=== PATIENT | male | born 1970 | race Caucasian/White ===

== ENCOUNTER 2016-12-12 16:01 | Inpatient (IN) | payer OTHER ==
[2016-12-12] VITALS (10 sets, daily range): BP systolic 109–137; BP diastolic 59–70; PULSE 84–99; RESP 14–20; Ht 175.3 cm; Wt 89.0 kg
[~2016-12-12] VITALS: Ht 175.3 cm; Wt 89.0 kg
[~2016-12-12 16:01] MED LIST: ROCURONIUM 50 MG INJ ONE
[2016-12-12 17:07] LABS: BASOPHILS % 0.4 % (0.0-2.0); EOSINOPHILS # 0.1 10^3/ul (0.0-0.5); EOSINOPHILS % 1.2 % (0.0-7.0); HEMATOCRIT 41.7 % (42.0-52.0); HEMOGLOBIN 14.4 g/dl (14.0-18.0); LYMPHOCYTES # 2.2 10^3/ul (0.8-2.9); LYMPHOCYTES % 19.9 % (15.0-51.0); MEAN CORPUSCULAR HEMOGLOBIN 33.9 pg (29.0-33.0); MEAN CORPUSCULAR HGB CONC 34.5 g/dl (32.0-37.0); MEAN CORPUSCULAR VOLUME 98.1 fl (82.0-101.0); MEAN PLATELET VOLUME 9.7 fl (7.4-10.4); MONOCYTE # 1.3 10^3/ul (0.3-0.9); MONOCYTES % 11.5 % (0.0-11.0); NEUTROPHIL # 7.4 10^3/ul (1.6-7.5); NEUTROPHILS % 66.7 % (39.0-77.0); PLATELET COUNT 192 10^3/UL (140-415); RED BLOOD COUNT 4.25 10^6/ul (4.70-6.10); RED CELL DISTRIBUTION WIDTH 12.8 % (11.5-14.5); WHITE BLOOD COUNT 11.1 10^3/ul (4.8-10.8)
[2016-12-12 17:13] LABS: ADD UMIC NO; UR ASCORBIC ACID 40 mg/dL (NEGATIVE); UR BILIRUBIN (Dip) NEGATIVE (NEGATIVE); UR BLOOD (Dip) NEGATIVE (NEGATIVE); UR CLARITY CLEAR (CLEAR); UR COLOR YELLOW (YELLOW); UR GLUCOSE (Dip) NEGATIVE (NEGATIVE); UR KETONES (Dip) NEGATIVE (NEGATIVE); UR LEUKOCYTE ESTERASE (Dip) NEGATIVE Leu/ul (NEGATIVE); UR NITRITE (Dip) NEGATIVE (NEGATIVE); UR SPECIFIC GRAVITY (Dip) 1.023 (1.003-1.030); UR TOTAL PROTEIN (Dip) NEGATIVE (NEGATIVE); UR UROBILINOGEN (Dip) NEGATIVE (NEGATIVE)
[2016-12-12 17:29] LABS: ALBUMIN 4.4 g/dl (3.3-4.9); ALBUMIN/GLOBULIN RATIO 1.41; BILIRUBIN,INDIRECT 0.8 mg/dl (0-1.1); BILIRUBIN,TOTAL 0.8 mg/dl (0.2-1.3); CREATININE 0.86 mg/dl (0.61-1.24); TOTAL PROTEIN 7.5 g/dl (6.1-8.1)
--- NOTE | 2016-12-12 17:41 | RADRPT ---
PROCEDURE: CT abdomen and pelvis without contrast. CLINICAL INDICATION: Abdominal Pain TECHNIQUE: CT scan of the abdomen and pelvis without contrast was performed and is reconstructed a t 2.5 mm contiguous axial intervals from the dome of the diaphragm to the inferior pubic rami.. The patient was scanned without intravenous contrast. Sagittal and coronal reformatted images were obt ained from the axial source images. The calculated radiation dose measures at 875 mGy centimeters. T he CTDI measures 60 mGy. COMPARISON: It FINDINGS: The lung bases are clear of any infiltrate or nodule. No effusion is seen. The liver is of normal size and contour. There is fatty infiltration. No mass or ductal dilatation is seen. No gallstones are visualized. No splenic, adrenal or pancreatic abnormalities present. Kidneys are of normal size and contour. No hydronephrosis, calculus or masses seen. Ureters are o f normal course and caliber with no stone. No bladder mass or stone is present. Prostate and semina l vesicles are normal. There is no aneurysm. No adenopathy is present. No bowel mass or obstruction is present. The appendix is located medial to the cecum. It is enla rged measuring 12 mm in diameter and there is infiltration of the surrounding periappendiceal fat. No abscess is present, however, there are a few tiny extraluminal gas bubbles. Findings are compati ble with early perforated appendicitis. ascites or pneumoperitoneum is visualized. The osseous structures are intact. IMPRESSION: Early perforated appendicitis. No abscess or generalized pneumoperitoneum. Fatty liver. .Lucio Gold MD, Date Time Electronically viewed and signed by .Lucio Gold MD, on 12/12/2016 17:41 .A/
[2016-12-12 18:29] LABS: INR 0.99; PROTIME 13.1 Sec (12.2-14.2)
[2016-12-12 18:30] LABS: PARTIAL THROMBOPLASTIN TIME 29.7 Sec (25.0-35.0)
[2016-12-12] MEDS ORDERED: CEFTRIAXONE 1 GM/50 ML (PMX) 50 ML IVPB ONE (18:30)
[2016-12-12] MEDS ORDERED: metroNIDAZOLE 500 MG/NS (PMX) 100 ML IVPB ONE (18:30)
[2016-12-12] MEDS ORDERED: SOD CHLORIDE 0.9% 1,000 ML IV ONE ×2 (18:30→19:00)
[2016-12-12] MEDS ORDERED: morphine 4 MG/ML VIAL IV STA (18:53)
--- NOTE | 2016-12-12 18:55 | ERA ---
ER Documentation Chief Complaint Date/Time DATE: 12/12/16 TIME: 18:50 Chief Complaint GENERALIZED ABD PAIN , LOW BACK PAIN X 4 DAYS HPI 46-year-old male presents to the ER with generalized abdominal pain worst in his mid abdomen and right lower quadrant as well as low back pain for the last 4 days. He is also had some nausea. States he is otherwise healthy and is does not usually happen to him. He did eat breakfast today at 7 in the morning and then he had T at 130. States that now he has nausea and feels like he cannot eat. ROS All systems reviewed and are negative except as per history of present illness. Medications Home Meds No Active Prescriptions or Reported Meds Allergies Allergies: Coded Allergies: No Known Allergy (Unverified , 12/12/16) PMhx/Soc Medical and Surgical Hx: pt denies Medical Hx, pt denies Surgical Hx History of Surgery: No Anesthesia Reaction: No Hx Neurological Disorder: No Hx Respiratory Disorders: No Hx Cardiac Disorders: No Hx Psychiatric Problems: No Hx Miscellaneous Medical Probl: No Hx Alcohol Use: Yes (WEEKLY) Hx Substance Use: No Hx Tobacco Use: Yes (3 CIGARETTE A WEEK) Smoking Status: Never smoker Physical Exam Vitals Vital Signs Date Time Temp Pulse Resp B/P Pulse Ox O2 Delivery O2 Flow Rate FiO2 12/12/16 16:05 99.2 88 18 146/93 98 Physical Exam Const: [] Mild distress Head: Atraumatic Eyes: Normal Conjunctiva ENT: Normal External Ears, Nose and Mouth. Neck: Full range of motion..~ No meningismus. Resp: Clear to auscultation bilaterally Cardio: Regular rate and rhythm, no murmurs Abd: Soft, mild diffuse abdominal tenderness with moderate right lower quadrant abdominal tenderness,, non distended. Normal bowel sounds Skin: No petechiae or rashes Back: No midline or flank tenderness Ext: No cyanosis, or edema Neur: Awake and alert oriented 3, no focal left Psych: Normal Mood and Affect Result Diagram: 12/12/16 1650 12/12/16 1650 Results 24 hrs Laboratory Tests Test 12/12/16 16:50 12/12/16 17:00 White Blood Count 11.110^3/ul Red Blood Count 4.2510^6/ul Hemoglobin 14.4g/dl Hematocrit 41.7% Mean Corpuscular Volume 98.1fl Mean Corpuscular Hemoglobin 33.9pg Mean Corpuscular Hemoglobin Concent 34.5g/dl Red Cell Distribution Width 12.8% Platelet Count 93206^3/UL Mean Platelet Volume 9.7fl Neutrophils % 66.7% Lymphocytes % 19.9% Monocytes % 11.5% Eosinophils % 1.2% Basophils % 0.4% Nucleated Red Blood Cells % 0.0/100WBC Neutrophils # 7.410^3/ul Lymphocytes # 2.210^3/ul Monocytes # 1.310^3/ul Eosinophils # 0.110^3/ul Basophils # 0.010^3/ul Nucleated Red Blood Cells # 0.010^3/ul Urine Color YELLOW Urine Clarity CLEAR Urine pH 5.0 Urine Specific [place] 1.023 Urine Ketones NEGATIVEmg/dL Urine Nitrite NEGATIVEmg/dL Urine Bilirubin NEGATIVEmg/dL Urine Urobilinogen NEGATIVEmg/dL Urine Leukocyte Esterase NEGATIVELeu/ul Urine Hemoglobin NEGATIVEmg/dL Urine Glucose NEGATIVEmg/dL Urine Total Protein NEGATIVEmg/dl Sodium Level 142mmol/L Potassium Level 4.0mmol/L Chloride Level 99mmol/L Carbon Dioxide Level 29mmol/L Anion Gap 18 Blood Urea Nitrogen 17mg/dl Creatinine 0.86mg/dl Glucose Level 101mg/dl Calcium Level 9.0mg/dl Total Bilirubin 0.8mg/dl Direct Bilirubin 0.00mg/dl Indirect Bilirubin 0.8mg/dl Aspartate Amino Transf (AST/SGOT) 19IU/L Alanine Aminotransferase (ALT/SGPT) 40IU/L Alkaline Phosphatase 66IU/L Total Protein 7.5g/dl Albumin 4.4g/dl Globulin 3.10g/dl Albumin/Globulin Ratio 1.41 Lipase 61U/L Prothrombin Time 13.1Sec Prothrombin Time Ratio 1.0 INR International Normalized Ratio 0.99 Activated Partial Thromboplast Time 29.7Sec Current Medications Medications (Trade) Dose Ordered Sig/Daniel Route PRN Reason Start Time Stop Time Status Last Admin Dose Admin Sodium Chloride 1,000 ml @ 1,000 mls/hr Q1H ONCE IV 12/12/16 18:30 12/12/16 19:29 12/12/16 18:28 Ceftriaxone Sodium 50 ml @ 100 mls/hr ONCE ONCE IVPB 12/12/16 18:30 12/12/16 18:59 7/22/17 18:36 Metronidazole (Flagyl 500 Mg (Pmx)) 100 ml @ 100 mls/hr ONCE ONCE IVPB 12/12/16 18:30 12/12/16 19:29 Procedures/MDM Acute appendicitis read as early perforation as well. Patient had a very subacute presentation. Did not seem to be in much distress, was given a liter of normal saline. Does have an elevated white blood cell count. I did speak with Dr. Olea, general surgeon on-call, who would like the patient sent to the OR immediately. He was also given Rocephin and Flagyl. I have ordered another liter of normal saline as well as coagulation studies. He will be admitted to the medical surgical floor CT abdomen pelvis interpretation: Appendicitis with early perforation, no obstruction, no fractures per Departure Diagnosis: Primary Impression: Appendicitis Condition: Serious AR GEIGER DO Dec 12, 2016 18:55
[2016-12-12] MEDS ORDERED: SOD CHLORIDE 0.9% 1,000 ML IV SCH (19:13)
[2016-12-12] MEDS ORDERED: MIDAZOLAM 1 MG/ML 2 ML INJ ONE (19:16)
[2016-12-12] MEDS ORDERED: DEXAMETHASONE 4 MG/ML 1 ML INJ ONE (19:16)
[2016-12-12] MEDS ORDERED: ONDANSETRON 4 MG INJ ONE (19:16)
[2016-12-12] MEDS ORDERED: NEOSTIGMINE 3 MG/3 ML SYRINGE ONE (19:16)
[2016-12-12] MEDS ORDERED: FENTAnyl 50 MCG/ML VIAL ONE (19:16)
[2016-12-12] MEDS ORDERED: PROPOFOL 20 ML ONE (19:16)
[2016-12-12] MEDS ORDERED: GLYCOPYRROLATE 0.4 MG INJ ONE (19:16)
[2016-12-12] MEDS ORDERED: CEFAZOLIN 1 GM INJ ONE (19:16)
[2016-12-12] MEDS ORDERED: ROCURONIUM 50 MG INJ ONE (19:16)
[2016-12-12] MEDS ORDERED: ALBUTEROL/IPRATROPIUM (NEB) 3 ML AMP HHN PRN (19:30)
[2016-12-12] MEDS ORDERED: hydrALAzine 20 MG INJ IV PRN (19:30)
[2016-12-12] MEDS ORDERED: LORAZEPAM 2 MG INJ IV PRN (19:30)
[2016-12-12] MEDS ORDERED: LABETALOL HCL 20MG INJ IV PRN (19:30)
[2016-12-12] MEDS ORDERED: ONDANSETRON 4 MG INJ IV PRN ×3 (19:30)
[2016-12-12] MEDS ORDERED: TRIMETHOBENZAMIDE 100 MG/ML VIAL IM PRN (19:30)
[2016-12-12] MEDS ORDERED: DIPHENHYDRAMINE 50 MG INJ IV PRN (19:30)
[2016-12-12] MEDS ORDERED: NACL 0.9% 3 ML SYG IV SCH (19:30)
[2016-12-12] MEDS ORDERED: morphine 2 MG INJ IV PRN (19:30)
[2016-12-12] MEDS ORDERED: EPHEDrine SULFATE 50 MG/5 ML SYG IV PRN (19:30)
[2016-12-12] MEDS ORDERED: MIDAZOLAM 1 MG/ML 2 ML INJ IV PRN (19:30)
[2016-12-12] MEDS ORDERED: ACETAMINOPHEN 325 MG TAB PO PRN ×2 (19:30)
[2016-12-12] MEDS ORDERED: MAGNESIUM HYDROXIDE 30ML CUP PO PRN (19:30)
[2016-12-12] MEDS ORDERED: DOCUSATE SODIUM 100 MG CAP PO PRN ×2 (19:30→22:00)
[2016-12-12] MEDS ORDERED: NA PHOSPHATE/BIPHOS 133 ML ENEMA PR PRN ×2 (19:30→22:00)
[2016-12-12] MEDS ORDERED: OXYCODONE/ACETAMINOPHEN (5/325) TAB PO PRN ×2 (19:30)
[2016-12-12] MEDS ORDERED: IPRATROPIUM (NEB) 0.5 MG/2.5 ML AMP HHN PRN (19:30)
[2016-12-12] MEDS ORDERED: HYDROCODONE/APAP (5/325) TAB PO PRN ×3 (19:30→22:00)
[2016-12-12] MEDS ORDERED: MEPERIDINE 25 MG INJ IV PRN (19:30)
[2016-12-12] MEDS ORDERED: HYDROmorphONE (0.2 MG/ML) 10ML SYG IV PRN ×3 (19:30)
[2016-12-12] MEDS ORDERED: FENTAnyl 50 MCG/ML VIAL IV PRN ×3 (19:30)
[2016-12-12] MEDS ORDERED: ALBUTEROL 0.083% (NEB) 2.5 MG/3 ML AMP HHN PRN (19:30)
[2016-12-12] MEDS ORDERED: NITROGLYCERIN (SL) 0.4 MG TAB SL PRN (19:30)
--- NOTE | 2016-12-12 19:51 | CONS ---
Date/Time of Note Date/Time of Note DATE: 12/12/16 TIME: 19:51 Assessment/Plan Assessment/Plan Additional Assessment/Plan [facility] INPATIENT CONSULTATION NOTE DATE OF SERVICE: 12/12/2016 PLACE OF SERVICE: [facility], preoperative area ASSESSMENT AND PLAN: A very-pleasant otherwise healthy 46-year-old gentleman admitted through the [facility] emergency department with signs and symptoms consistent with acute appendicitis, associated with mildly elevated white blood cell count and a CT scan showing acute appendicitis. I recommended laparoscopic, possible open appendectomy and after careful review of the rationale behind the recommendation, review of the operation detail, risks, benefits, and alternatives, the patient and his family appeared to understand and agreed with the proposed operative plan. With above assessment, I've recommended the followin. To the operating room for above Thank you very much for having me involved in the care of this very pleasant patient and wonderful family. If you have any questions, please feel free to contact me at [phone]. Nature of presenting problem: Moderate severity Please note that, given the limited number of diagnoses or management options, the moderate amount and/or complexity of data needed to be reviewed, and moderate risk of complications and/or morbidity or mortality, this qualifies as moderate complexity type of decision-making. Disclaimer: Inadvertent spelling and grammatical errors are likely due to EHR/ dictation software use and do not reflect on the quality of delivered patient care. Also, please note that the electronic time recorded on this node does not necessarily reflect the actual time of the visit. Updated clinical summary: A very-pleasant otherwise healthy 46-year-old gentleman admitted through the [facility] emergency department with signs and symptoms consistent with acute appendicitis, associated with mildly elevated white blood cell count and a CT scan showing acute appendicitis. Comorbidities: 1. BMI 29 CONSULTATION REQUESTED BY: Cristino Latif MD HISTORY OF PRESENT ILLNESS: The patient is a very pleasant 46-year-old gentleman admitted through the [facility] emergency department with signs and symptoms consistent with acute appendicitis, associated with mildly elevated white blood cell count and a CT scan showing acute appendicitis. Pain started four days ago. Periumbilical with right lower quadrant location without radiation. No associated fevers or chills. Patient did have nausea but no vomiting. No blood in the stool or urine or in the emesis. Otherwise healthy. ALLERGIES: NO KNOWN DRUG ALLERGIES MEDICATIONS Documented in the electronic records and reviewed by me. Please see the electronic records for details, as well as details for inpatient medications which were also reviewed by me. SOCIAL HISTORY: The patient lives with family. + Tob (3 cigarettes a week);- ETOH;- IVDU FAMILY HISTORY: There are no significant medical, surgical or oncologic issues in the family as reported by the patient or reflected in the chart. REVIEW OF SYSTEMS: Other than mentioned above, there were no other pertinent positives or pertinent negatives in an otherwise complete 14 point review of systems. PHYSICAL EXAMINATION GENERAL: The patient appears to be a very pleasant gentleman of descent lying in bed, appearing stated age, and otherwise in no acute distress. BMI: 29 VITAL SIGNS: AVSS (please also see auto important data if available as well as the electronic records) HEENT: Normocephalic and atraumatic. Extraocular muscles and hearing are grossly intact bilaterally and symmetrically. Sclerae are nonicteric. Oral cavity is clear; oral mucosa appear to be pink and moist. Dentition: fair. NECK: Supple. There is no lymphadenopathy or JVD. There is no submental, submandibular or supraclavicular lymphadenopathy. CHEST: Rises symmetrically with each breath; patient is breathing comfortably. There are no audible wheezes, rales or rhonchi on the gross exam. HEART: Pulse is regular and palpable on the right wrist. Capillary refill is normal. Carotid pulses are palpable bilaterally and symmetrically in the neck. EXTREMITIES: Lower extremities contain no pitting edema around the ankles bilaterally and symmetrically. ABDOMEN: Abdomen is soft, mildly tender in right lower quadrant and nondistended. No evidence of ascites, organomegaly, caput medusae, engorged subcutaneous veins, or other abnormalities. There are no peritoneal signs or guarding. SKIN: Appears to be pink and feels warm to touch. NEUROLOGIC: Awake, alert, and follows commands appropriately. LABORATORY DATA: WBC 11.1, hemoglobin 14.4, platelets 192. Electrolytes are normal, CO2 29, creatinine 0.86, liver function and injury parameters normal. Albumin 4.4, lipase 61. INR 0.99. IMAGING: See electronic chart. Please note that I've personally reviewed all pertinent available images and I agree in general with their overall reported findings. CT scan abdomen and pelvis [facility] 12/12/2016 IMPRESSION: Early perforated appendicitis. No abscess or generalized pneumoperitoneum. Consultation Date/Type/Reason Admit Date/Time Social History Smoking Status: Never smoker Exam/Review of Systems Vital Signs Vitals Vital Signs Date Time Temp Pulse Resp B/P Pulse Ox O2 Delivery O2 Flow Rate FiO2 12/12/16 16:05 99.2 88 18 146/93 98 Results Result Diagram: 12/12/16 1650 12/12/16 1650 Results 24 hrs Laboratory Tests Test 12/12/16 16:50 12/12/16 17:00 White Blood Count 11.1 H Red Blood Count 4.25 L Hemoglobin 14.4 Hematocrit 41.7 L Mean Corpuscular Volume 98.1 Mean Corpuscular Hemoglobin 33.9 H Mean Corpuscular Hemoglobin Concent 34.5 Red Cell Distribution Width 12.8 Platelet Count 192 Mean Platelet Volume 9.7 Neutrophils % 66.7 Lymphocytes % 19.9 Monocytes % 11.5 H Eosinophils % 1.2 Basophils % 0.4 Nucleated Red Blood Cells % 0.0 Neutrophils # 7.4 Lymphocytes # 2.2 Monocytes # 1.3 H Eosinophils # 0.1 Basophils # 0.0 Nucleated Red Blood Cells # 0.0 Urine Color YELLOW Urine Clarity CLEAR Urine pH 5.0 Urine Specific [place] 1.023 Urine Ketones NEGATIVE Urine Nitrite NEGATIVE Urine Bilirubin NEGATIVE Urine Urobilinogen NEGATIVE Urine Leukocyte Esterase NEGATIVE Urine Hemoglobin NEGATIVE Urine Glucose NEGATIVE Urine Total Protein NEGATIVE Sodium Level 142 Potassium Level 4.0 Chloride Level 99 Carbon Dioxide Level 29 Anion Gap 18 H Blood Urea Nitrogen 17 Creatinine 0.86 Glucose Level 101 Calcium Level 9.0 Total Bilirubin 0.8 Direct Bilirubin 0.00 Indirect Bilirubin 0.8 Aspartate Amino Transf (AST/SGOT) 19 Alanine Aminotransferase (ALT/SGPT) 40 Alkaline Phosphatase 66 Total Protein 7.5 Albumin 4.4 Globulin 3.10 Albumin/Globulin Ratio 1.41 Lipase 61 Prothrombin Time 13.1 Prothrombin Time Ratio 1.0 INR International Normalized Ratio 0.99 Activated Partial Thromboplast Time 29.7 Medications Medications Current Medications Sodium Chloride 1,000 ml @ 1,000 mls/hr Q1H ONCE IV Last administered on t 18:28; Admin Dose 1,000 MLS/HR; Start 12/12/16 at 18:30; Stop 12/12/16 at 19:29 Ceftriaxone Sodium 50 ml @ 100 mls/hr ONCE ONCE IVPB Last administered on t 18:36; Admin Dose 100 MLS/HR; Start 12/12/16 at 18:30; Stop 12/12/16 at 18:59 Metronidazole (Flagyl 500 Mg (Pmx)) 100 ml @ 100 mls/hr ONCE ONCE IVPB ; Start 12/12/16 at 18:30; Stop 12/12/16 at 19:29 POPPY NAIK M.D. Dec 12, 2016 19:51
[2016-12-12] MEDS ORDERED: BUPIVACAINE 0.25%/EPI (SDV) 30 ML INJ ONE (20:24)
[2016-12-12] MEDS ORDERED: SUGAMMADEX SODIUM 200 MG/2 ML VIAL IV ONE (21:12)
[2016-12-12] MEDS ORDERED: KETOROLAC 30 MG INJ ONE (21:13)
--- NOTE | 2016-12-12 21:33 | OPR ---
Date/Time of Note Date/Time of Note DATE: 12/12/16 TIME: 21:32 Operative Report Procedure Description [facility] IN[facility]IENT [facility] PLACE OF SERVICE: [facility] DATE OF SURGERY: 12/12/2016 PREOPERATIVE DIAGNOSIS: 1. Acute appendicitis with possible perforation 2. BMI 29 POSTOPERATIVE DIAGNOSIS: 1. Acute appendicitis without obvious perforation 2. BMI 29 OPERATION: 1. Laparoscopic appendectomy 2. Lysis of adhesions SURGEON: Poppy Naik M.D. FACTORY EXPERT: None ANESTHESIA: General endotracheal tube anesthesia ANESTHESIOLOGIST: Alex Buitrago M.D. BRIEF SUMMARY: An otherwise uncomplicated laparoscopic appendectomy was performed with findings of non-perforated appendicitis. Updated clinical summary: A very-pleasant otherwise healthy 46-year-old gentleman admitted through the [facility] emergency department with signs and symptoms consistent with acute appendicitis, associated with mildly elevated white blood cell count and a CT scan showing acute appendicitis. Comorbidities: 1. BMI 29 BRIEF HISTORY: The patient is a very-pleasant otherwise healthy 46-year-old gentleman admitted through the [facility] emergency department with signs and symptoms consistent with acute appendicitis, associated with mildly elevated white blood cell count and a CT scan showing acute appendicitis. I met with the patient and family (his ) and counseled them regarding the possible options of treatment, and I strongly suggested a laparoscopic, possible open appendectomy. We reviewed the operation in detail as well as the risks, benefits, alternatives, and expected outcomes of this operation. After careful consideration of all the risks, benefits, and alternatives, the patient and family appeared to understand those risks and wished to proceed with surgery. For a detailed report of my consultation with patient and family, please refer to my separate consultation note. STATEMENT OF THE INFORMED CONSENT: The patient and family appeared to understand the risks of the operation to include, but not be limited to risk of postoperative pain and scar tissue, possible infection or bleeding requiring other interventions such as opening the wound, placement of drainage catheters, or other operative interventions; possible injury to surrounding to structures including bowel, bladder, bile duct, or blood vessels, or solid organs such as liver, kidney, or pancreas requiring other interventions or procedures; possible leakage of bowel from anastomotic sites or suture lines causing significant increase in morbidity and mortality and requiring multiple interventions including but not limited to, placement of drainage catheters, imaging studies, as well as operative interventions; possible other source of sepsis such as urinary tract infections or pneumonias, or other sources of potentially life threatening problems such as deep venous thrombus formation causing pulmonary embolism, myocardial arrhythmias and infarctions, and even . After careful consideration of all their options, the patient and family appeared to understand and wished to proceed with surgery. DESCRIPTION OF PROCEDURE: After obtaining informed consent, the patient was brought into the operating room and was placed in a normal supine position, where successful general endotracheal tube anesthesia was performed. Intravenous access was already in place and intravenous antimicrobials had been appropriately chosen and dosed prior to the operation. The patient's abdominal skin was prepped and draped from the nipple line down to the level of the upper thighs in the usual sterile fashion. We then called a surgical time-out where the patient's identification, date of , nature of the operation, allergies , presence of intravenous antimicrobials, presence of needed equipment, and any other concerns were reviewed and agreed upon by all members of the operating room team. We then started the operation by placing a 5 mm skin incision in the left lower quadrant and then introduced a 5 mm [employer] trocar into the peritoneal space, visualizing all the layers of the abdominal wall as we entered. Note that there was no indication of any injury to underlying structures with our entry into the peritoneal space. We insufflated the abdominal cavity to a maximum pressure of 15 mmHg and again inspected the area of insertion and ensured no obvious injury to underlying structures prior to inspecting the abdominal cavity and showing no obvious pus, bowel contents, or other abnormal features. We could not see the appendix very well. We, therefore, injected the future sites of our other trocars with 0.25% Marcaine with epinephrine and placed a 5 mm [employer] trocar into the midline suprapubic area, taking care not to injure the bladder. Note that the patient had not urinated prior to the operation, and bladder was somewhat full. We also placed a 12 mm trocar in the umbilical midline area, all under direct visualization. With our instruments in place, we had excellent visualization and access to the right lower quadrant. We then identified the appendix, which was inflamed but had a normal base coming out of the cecum. The appendix appeared to be densely adherent onto the right pelvic sidewall. I spent approximately 30 minutes doing lysis of adhesions to dissect around this area. I then went ahead and used judicious amount of cautery as well as mostly blunt dissection to circumferentially isolate the base of the appendix and then transected this using one firing of the white load of the Endo-MILANA stapler. We also repeated the firing on the mesentery of the appendix (2 loads) and completely disconnected the organ from the colon, delivered this out through the 12 mm trocar site inside of an EndoCatch bag without having to enlarge the fascial defect as well as without contaminating the wound. The specimen was sent to Pathology for further analysis. We then ensured adequate hemostasis and bile stasis, removed all our equipment including the pneumoperitoneum from the abdominal cavity prior to closing the infraumbilical fascia with 1 [id number] 0 Vicryl suture on a UR -6 needle, washing the wounds with copious amounts of normal saline, injecting the initial insertion point of the trocar with 0.25% Marcaine with epinephrine, and then closing the skin using interrupted 4-0 Monocryl sutures. Light dressing was then applied. At the end of the operation, both the sponge count and needle count were reportedly correct x2. The patient tolerated the procedure without any reported complications. ESTIMATED BLOOD LOSS: Less than 10 mL. BLOOD OR BLOOD PRODUCT TRANSFUSIONS: None to my knowledge. SPECIMENS: 1. Appendix COMPLICATIONS: None. DISPOSITION: Recovery area. Disclaimer: Inadvertent spelling and grammatical errors are likely due to EHR/ dictation software use and do not reflect on the quality of delivered patient care. POPPY NAIK M.D. Dec 12, 2016 21:33
[2016-12-12] MEDS ORDERED: HYDROmorphONE 1 MG/ML SYG IV PRN ×2 (22:00)
[2016-12-12] MEDS ORDERED: BISACODYL 10 MG SUPP PR PRN (22:00)
[2016-12-12] MEDS: D5W-0.45 NACL + KCL 20 MEQ 1,000 ML IV SCH (23:39)
[2016-12-12 23:56] LABS: INR 1.09; PARTIAL THROMBOPLASTIN TIME 32.2 Sec (25.0-35.0); PROTIME 14.1 Sec (12.2-14.2); PT RATIO 1.1
[2016-12-12] MEDS: HEPARIN 5,000 UNIT/0.5 ML VIAL SC SCH (23:58)
[2016-12-13] VITALS: BP 114/63; PULSE 88; RESP 17
[2016-12-13 04:00] VITALS: BP 115/66; PULSE 82; RESP 18
--- NOTE | 2016-12-13 05:24 | HP ---
Date/Time of Note Date/Time of Note DATE: 12/13/16 TIME: 05:18 Assessment/Plan VTE Prophylaxis VTE Prophylaxis Intervention: SCD's Lines/Catheters IV [facility] (from [facility] Peripheral IV Assessment/Plan Assessment/Plan 1. Acute appendicitis, status post laparoscopic appendectomy -Patient is doing really well. He is denying pain, and has been ambulating without any difficulty. No nausea or vomiting and has been tolerating water. -Patient will be discharged later on today if cleared by surgery. 2. Obesity with a BMI of 29: -Weight reduction has been advised. HPI/ROS Admit Date/Time Admit Date/Time Hx of Present Illness This is a 46-year-old male with no significant past medical history who presented to the emergency department complaining of abdominal pain. CT abdomen pelvis shows early perforated appendicitis. He is now status post laparoscopic appendectomy and he is doing well. During surgery, his appendix was noted to be not perforated. Currently he is denying pain, nausea or vomiting. He has been drinking water and is able to keep it down. He said he has been passing gas and ambulating without any difficulty. PMH/Family/Social Social History Alcohol Use: other (6 cans of beer weekly) Smoking Status: Current some day smoker Drug Use: none Exam/Review of Systems Vital Signs Vitals Vital Signs Date Time Temp Pulse Resp B/P Pulse Ox O2 Delivery O2 Flow Rate FiO2 12/12/16 23:00 Nasal Cannula 2.0 12/12/16 22:17 98.7 84 18 109/62 97 Intake and Output 12/12/16 12/12/16 12/13/16 15:00 23:00 07:00 Intake Total 2400 ml Output Total 25 ml Balance 2375 ml Exam Constitutional: alert, oriented, well developed Head: atraumatic, normocephalic Eyes: EOMI, PERRL Respiratory: clear to auscultation, normal air movement Cardiovascular: nl pulses, regular rate and rhythm Gastrointestinal: other (minimally tender at surgical sites), soft, surgical scars Extremities: normal pulses Labs Result Diagram: 12/12/16 1650 12/12/16 1650 Medications Medications Current Medications Ondansetron HCl (Zofran Inj) 4 mg Q6H PRN IV NAUSEA AND/OR VOMITING; Start at 19:30 Acetaminophen (Tylenol Tab) 650 mg Q6H PRN PO PAIN LEVEL 1-3 OR FEVER; Start at 19:30 Acetaminophen/ Hydrocodone Bitart ([place] (5/325)) 1 tab Q6H PRN PO MODERATE PAIN LEVEL 4-6; Start 12/12/16 at 19:30 Docusate Sodium (Colace) 100 mg Q12H PRN PO CONSTIPATION; Start 12/12/16 at 19: 30 Magnesium Hydroxide (Milk Of Mag) 30 ml DAILY PRN PO CONSTIPATION; Start at 19:30 Sodium Biphosphate/ Sodium Phosphate (Fleet Enema) 133 ml DAILY PRN [place] CONSTIPATION; Start 12/12/16 at 19:30 Pantoprazole (Protonix Iv) 40 mg DAILY@06 IV ; Start 12/13/16 at 06:00 Heparin Sodium (Porcine) (Heparin (5000 Units/0.5 ml)) 5,000 unit Q12 SC Last administered on 12/12/16t 23:58; Admin Dose 5,000 UNIT; Start 12/12/16 at 21:00 Lorazepam (Ativan) 0.5 mg Q6H PRN IV ANXIETY; Start 12/12/16 at 19:30 Hydralazine HCl (Apresoline) 10 mg Q6H PRN IV ELEVATED BLOOD PRESSURE; Start at 19:30 Nitroglycerin (Nitroglycerin (Sl Tab) 0.4 Mg) 1 tab Q5M PRN SL ANGINA; Start at 19:30 Nicotine 1 patch 1 patch DAILY TRANSDERM ; Start 12/13/16 at 09:00 Potassium Chloride/Dextrose/ Sod Cl (D5-1/2ns + KCl 20 Meq) 1,000 ml @ 100 mls/ hr Q10H IV Last administered on 12/12/16t 23:39; Admin Dose 100 MLS/HR; Start 12/12/16 at 21:33 Acetaminophen/ Hydrocodone Bitart ([place] (5/325)) 1 tab Q4H PRN PO PAIN LEVEL 4 -7; Start 12/12/16 at 22:00 Acetaminophen/ Hydrocodone Bitart ([place] (5/325)) 2 tab Q4H PRN PO PAIN LEVEL 7 -10; Start 12/12/16 at 22:00 Hydromorphone HCl (Dilaudid) 0.5 mg Q2 PRN IV PAIN; Start 12/12/16 at 22:00 Hydromorphone HCl (Dilaudid) 1 mg Q2 PRN IV PAIN; Start 12/12/16 at 22:00 Docusate Sodium (Colace) 100 mg BID PRN PO CONSTIPATION; Start 12/12/16 at 22: 00 Bisacodyl (Dulcolax Supp) 10 mg BID PRN [place] CONSTIPATION; Start 12/12/16 at 22: 00 Sodium Biphosphate/ Sodium Phosphate (Fleet Enema) 133 ml BID PRN [place] CONSTIPATION; Start 12/12/16 at 22:00 Famotidine (Pepcid Iv) 20 mg DAILY IV ; Start 12/13/16 at 09:00 Enoxaparin Sodium (Lovenox) 40 mg DAILY SC ; Start 12/13/16 at 09:00 GREG RIVAS MD Dec 13, 2016 05:24
[2016-12-13] MEDS ORDERED: PANTOPRAZOLE 40 MG INJ IV SCH (06:00)
[2016-12-13 06:54] LABS: HEMATOCRIT 37.3 % (42.0-52.0); HEMOGLOBIN 12.9 g/dl (14.0-18.0); LYMPHOCYTES # 0.7 10^3/ul (0.8-2.9); LYMPHOCYTES % 7.3 % (15.0-51.0); MEAN CORPUSCULAR HEMOGLOBIN 33.8 pg (29.0-33.0); MEAN CORPUSCULAR HGB CONC 34.6 g/dl (32.0-37.0); MEAN CORPUSCULAR VOLUME 97.6 fl (82.0-101.0); MEAN PLATELET VOLUME 10.6 fl (7.4-10.4); MONOCYTE # 0.3 10^3/ul (0.3-0.9); NEUTROPHIL # 8.2 10^3/ul (1.6-7.5); NEUTROPHILS % 89.3 % (39.0-77.0); PLATELET COUNT 179 10^3/UL (140-415); RED BLOOD COUNT 3.82 10^6/ul (4.70-6.10); RED CELL DISTRIBUTION WIDTH 12.7 % (11.5-14.5); WHITE BLOOD COUNT 9.2 10^3/ul (4.8-10.8)
[2016-12-13 07:20] LABS: MAGNESIUM 2.1 mg/dl (1.7-2.5)
[2016-12-13 07:21] LABS: CALCIUM 8.6 mg/dl (8.4-10.2)
[2016-12-13 07:22] LABS: ALBUMIN 3.6 g/dl (3.3-4.9); ALBUMIN/GLOBULIN RATIO 1.12; BILIRUBIN,INDIRECT 0.5 mg/dl (0-1.1); BILIRUBIN,TOTAL 0.5 mg/dl (0.2-1.3); CALCIUM 8.6 mg/dl (8.4-10.2); CREATININE 0.77 mg/dl (0.61-1.24); POTASSIUM 4.4 mmol/L (3.5-5.1); TOTAL PROTEIN 6.8 g/dl (6.1-8.1)
[2016-12-13 07:24] LABS: CHOL/HDL RATIO 3.8 RATIO
[2016-12-13 07:28] LABS: INR 1.08; PT RATIO 1.1
[2016-12-13 07:29] LABS: PARTIAL THROMBOPLASTIN TIME 31.4 Sec (25.0-35.0)
[2016-12-13] MEDS: D5W-0.45 NACL + KCL 20 MEQ 1,000 ML IV SCH (07:33)
[2016-12-13 07:49] LABS: THYROID STIMULATING HORMONE 0.384 MIU/L (0.465-4.680)
[2016-12-13] MEDS ORDERED: FAMOTIDINE 20 MG INJ IV SCH (09:00)
[2016-12-13] MEDS: HEPARIN 5,000 UNIT/0.5 ML VIAL SC SCH (09:00)
[2016-12-13] MEDS ORDERED: NICOTINE (7 MG/24 HR) PATCH TRANSDERM SCH (09:00)
[2016-12-13] MEDS ORDERED: ENOXAPARIN 40 MG/0.4 ML SYG SC SCH (09:00)
[2016-12-13 09:38] VITALS: BP 119/74; RESP 18
--- NOTE | 2016-12-13 11:00 | PN ---
Date/Time of Note Date/Time of Note DATE: 12/13/16 TIME: 11:00 Assessment/Plan Lines/Catheters IV Catheter Type (from Nrs): [place] Assessment/Plan Assessment/Plan [facility] Progress Note Date of Service: 12/13/2016 Place of service: [facility] fourth floor Today's Assessment & Plan: Overall stable and doing well. No evidence for major postoperative complication or surgical site infection. No indication for acute surgical intervention. With above assessment, I've recommended the following for today: 1. Okay to discharge from my standpoint 2. Please include the following in the patient's discharge instructions: "Please call [phone] if any of fever, nausea, vomiting, discharge from wound, wound redness, increase or sudden pain, blood in stool or vomit, or any other unusual signs or symptoms. Also, please call the same number in a few days to schedule an appointment for your follow up visit. Patient may remove dressings tomorrow. Showers OK starting tomorrow. No swimming , hot tub or bath for 2 weeks. No lifting more than 25 lbs for 8 weeks." Thank you again for your great care of this very pleasant patient and wonderful family. If there are any questions, please feel free to call me at [phone]. Nature of presenting problem: High severity Please note that, given the limited number of diagnoses or management options, the limited amount and/or complexity of data needed to be reviewed, and moderate risk of complications and/or morbidity or mortality, this qualifies as low complexity type of decision-making. Disclaimer: Inadvertent spelling and grammatical errors are likely due to EHR/ dictation software use and do not reflect on the quality of delivered patient care. Also, please note that the electronic time recorded on this node does not necessarily reflect the actual time of the visit. Updated clinical summary: A very-pleasant otherwise healthy 46-year-old gentleman admitted through the [facility] emergency department with signs and symptoms consistent with acute appendicitis, associated with mildly elevated white blood cell count and a CT scan showing acute appendicitis. S/p an otherwise uncomplicated laparoscopic appendectomy was performed with findings of non- perforated appendicitis. Comorbidities: 1. S/p an otherwise uncomplicated laparoscopic appendectomy with lysis of adhesions was performed with findings of non-perforated appendicitis at [facility] on 12/12/2016. 2. BMI 29 Subjective: No major events or complaints; no major abd pain and under control with medications; no n/v/d; no sob or cp; + flatus; - BM; + activity Objective: Vitals: See below I's & O's: See below Exam: GENERAL: On exam, the patient was lying in bed and appeared to be comfortable and in no acute distress. ABDOMEN: Soft, nontender and nondistended. Incision dressings are clean, dry and intact without any evidence of obvious underlying erythema, edema, discharge , or hernia. There are no peritoneal signs or guarding. SKIN: Skin appears to be pink and feels warm to touch. NEUROLOGIC: Patient is awake, alert, and follows commands appropriately. Labs: See below Exam/Review of Systems Vital Signs Vitals Vital Signs Date Time Temp Pulse Resp B/P Pulse Ox O2 Delivery O2 Flow Rate FiO2 12/13/16 09:38 98.3 60 18 119/74 94 12/13/16 04:00 Room Air 12/12/16 23:00 2.0 Intake and Output 12/12/16 12/12/16 12/13/16 15:00 23:00 07:00 Intake Total 2400 ml 1100 ml Output Total 25 ml 1000 ml Balance 2375 ml 100 ml Results Result Diagram: 12/13/16 0502 12/13/16 0502 POPPY NAIK M.D. Dec 13, 2016 11:00
[2016-12-13] MEDS ORDERED: HYDR-906 PO (15:29)
--- NOTE | 2016-12-13 15:30 | PDOCDIS ---
Discharge Instructions CONDITION Patient Condition: Good HOME CARE INSTRUCTIONS: Diet Instructions: RegularSpecial Diet: advance diet as tolerated ACTIVITY: Activity Restrictions: Slowly Increase Activity Rest between Activity Avoid heavy lifting Bathing Restrictions: Shower FOLLOW UP/APPOINTMENTS Follow-up Plan follow up with CATE Mitchell Dec 13, 2016 15:30
--- NOTE | 2016-12-13 15:35 | DS ---
Date/Time of Note Date/Time of Note DATE: 12/13/16 TIME: 15:33 Discharge Summary Admission/Discharge Info Admit Date/Time Dec 12, 2016 at 22:20 Discharge Date/Time Patient Condition: Good Hx of Present Illness This is a 46-year-old male with no significant past medical history who presented to the emergency department complaining of abdominal pain. CT abdomen pelvis shows early perforated appendicitis. He is now status post laparoscopic appendectomy and he is doing well. During surgery, his appendix was noted to be not perforated. Currently he is denying pain, nausea or vomiting. He has been drinking water and is able to keep it down. He said he has been passing gas and ambulating without any difficulty. Hospital Course Acute appendicitis Obesity Low phosphorus Abdominal pain Elevated respiratory rate Patient is a 46-year-old male with no significant past medical history presented to [facility] for abdominal pain 5 to have acute appendicitis. General surgery was consulted and patient was taken into the OR as initial imaging showed possible perforation of the appendix. Upon laparoscopic intervention, there was no obvious perforation found per general surgery patient underwent fairly uneventful appendectomy laparoscopically. Patient feels well and is eating a regular diet and is ready to go home with pain medication. Home Meds Active Scripts Hydrocodone/Acetaminophen ([place] 5-325 Tablet) 1 Each Tablet, 1 EACH PO Q8 Y for PAIN, #21 TAB Prov:CATE FLORENCE 12/13/16 Follow-up Plan follow up with Dr. Sylvester Olea Primary Care Provider Not On Staff Doctor Time spent on discharge: > 30 minutes Pending Labs Laboratory Tests Test 12/12/16 16:50 12/12/16 17:00 12/12/16 22:53 12/13/16 05:02 White Blood Count 11.110^3/ul (4.8-10.8) 9.210^3/ul (4.8-10.8) Red Blood Count 4.2510^6/ul (4.70-6.10) 3.8210^6/ul (4.70-6.10) Hemoglobin 14.4g/dl (14.0-18.0) 12.9g/dl (14.0-18.0) Hematocrit 41.7% (42.0-52.0) 37.3% (42.0-52.0) Mean Corpuscular Volume 98.1fl (82.0-101.0) 97.6fl (82.0-101.0) Mean Corpuscular Hemoglobin 33.9pg (29.0-33.0) 33.8pg (29.0-33.0) Mean Corpuscular Hemoglobin Concent 34.5g/dl (32.0-37.0) 34.6g/dl (32.0-37.0) Red Cell Distribution Width 12.8% (11.5-14.5) 12.7% (11.5-14.5) Platelet Count 64591^3/UL (140-415) 28540^3/UL (140-415) Mean Platelet Volume 9.7fl (7.4-10.4) 10.6fl (7.4-10.4) Neutrophils % 66.7% (39.0-77.0) 89.3% (39.0-77.0) Lymphocytes % 19.9% (15.0-51.0) 7.3% (15.0-51.0) Monocytes % 11.5% (0.0-11.0) 3.0% (0.0-11.0) Eosinophils % 1.2% (0.0-7.0) 0.0% (0.0-7.0) Basophils % 0.4% (0.0-2.0) 0.0% (0.0-2.0) Nucleated Red Blood Cells % 0.0/100WBC (0.0-0.0) 0.0/100WBC (0.0-0.0) Neutrophils # 7.410^3/ul (1.6-7.5) 8.210^3/ul (1.6-7.5) Lymphocytes # 2.210^3/ul (0.8-2.9) 0.710^3/ul (0.8-2.9) Monocytes # 1.310^3/ul (0.3-0.9) 0.310^3/ul (0.3-0.9) Eosinophils # 0.110^3/ul (0.0-0.5) 0.010^3/ul (0.0-0.5) Basophils # 0.010^3/ul (0.0-0.1) 0.010^3/ul (0.0-0.1) Nucleated Red Blood Cells # 0.010^3/ul (0.0-0.0) 0.010^3/ul (0.0-0.0) Urine Color YELLOW (YELLOW) Urine Clarity CLEAR (CLEAR) Urine pH 5.0 (5.0-9.0) Urine Specific [place] 1.023 (1.003-1.030) Urine Ketones NEGATIVEmg/dL (NEGATIVE) Urine Nitrite NEGATIVEmg/dL (NEGATIVE) Urine Bilirubin NEGATIVEmg/dL (NEGATIVE) Urine Urobilinogen NEGATIVEmg/dL (NEGATIVE) Urine Leukocyte Esterase NEGATIVELeu/ul (NEGATIVE) Urine Hemoglobin NEGATIVEmg/dL (NEGATIVE) Urine Glucose NEGATIVEmg/dL (NEGATIVE) Urine Total Protein NEGATIVEmg/dl (NEGATIVE) Sodium Level 142mmol/L (135-144) 141mmol/L (135-144) Potassium Level 4.0mmol/L (3.5-5.1) 4.4mmol/L (3.5-5.1) Chloride Level 99mmol/L (97-110) 102mmol/L (97-110) Carbon Dioxide Level 29mmol/L (21-31) 26mmol/L (21-31) Anion Gap 18 (8-16) 17 (8-16) Blood Urea Nitrogen 17mg/dl (7-20) 15mg/dl (7-20) Creatinine 0.86mg/dl (0.61-1.24) 0.77mg/dl (0.61-1.24) Glucose Level 101mg/dl (70-220) 162mg/dl (70-220) Calcium Level 9.0mg/dl (8.4-10.2) 8.6mg/dl (8.4-10.2) Total Bilirubin 0.8mg/dl (0.2-1.3) 0.5mg/dl (0.2-1.3) Direct Bilirubin 0.00mg/dl (0.00-0.20) 0.00mg/dl (0.00-0.20) Indirect Bilirubin 0.8mg/dl (0-1.1) 0.5mg/dl (0-1.1) Aspartate Amino Transf (AST/SGOT) 19IU/L (15-46) 21IU/L (15-46) Alanine Aminotransferase (ALT/SGPT) 40IU/L (13-69) 32IU/L (13-69) Alkaline Phosphatase 66IU/L (42-121) 55IU/L (42-121) Total Protein 7.5g/dl (6.1-8.1) 6.8g/dl (6.1-8.1) Albumin 4.4g/dl (3.3-4.9) 3.6g/dl (3.3-4.9) Globulin 3.10g/dl (1.3-3.2) 3.20g/dl (1.3-3.2) Albumin/Globulin Ratio 1.41 1.12 Lipase 61U/L (23-300) Prothrombin Time 13.1Sec (12.2-14.2) 14.1Sec (12.2-14.2) 14.0Sec (12.2-14.2) Prothrombin Time Ratio 1.0 1.1 1.1 INR International Normalized Ratio 0.99 1.09 1.08 Activated Partial Thromboplast Time 29.7Sec (25.0-35.0) 32.2Sec (25.0-35.0) 31.4Sec (25.0-35.0) Free Thyroxine 1.17ng/dl (0.64-1.79) Hemoglobin A1c 5.3% (0-5.9) Lactic Acid Level 1.9mmol/L (0.5-2.0) Phosphorus Level 2.0mg/dl (2.5-4.9) Magnesium Level 2.1mg/dl (1.7-2.5) B-Type Natriuretic Peptide 161PG/ML (0-125) Triglycerides Level 69mg/dl (0-149) Cholesterol Level 184mg/dl (100-200) LDL Cholesterol, Calculated 122mg/dl HDL Cholesterol 48mg/dl (27-67) Cholesterol/HDL Ratio 3.8RATIO Thyroid Stimulating Hormone (TSH) 0.384MIU/L (0.465-4.680) CATE FLORENCE Dec 13, 2016 15:35
== END 2016-12-13 17:25 | disposition home or self-care (01) | DRG 343 ==
LOC: FTE 16:01 → MS1 18:49 → E/R 22:19 → MS1 22:20
PROVIDERS: ADMIT Hospitalist; ATTEND Internal Medicine
PROC: 3E0M05Z Introduction of Adhesion Barrier into Peritoneal Cavity, Open Approach (ICD-10-PCS; 2016-12-12)
PROC: 0DTJ4ZZ Resection of Appendix, Percutaneous Endoscopic Approach (ICD-10-PCS; principal; 2016-12-12 20:30)
DX: K35.80 Unspecified acute appendicitis (principal); E83.39 Other disorders of phosphorus metabolism; F17.200 Nicotine dependence, unspecified, uncomplicated; K66.0 Peritoneal adhesions (postprocedural) (postinfection); R06.82 Tachypnea, not elsewhere classified
CPT/HCPCS: 36415; 74176; 80053; 80061; 81003; 82310; 83036; 83605; 83690; 83735; 83880; 84100; 84439; 84443; 85025; 85610; 85730; 86850; 86900; 86901; 88304; 96374; C9113; J0690; J1100; J1170; J1644; J1650; J1885; J2250; J2405; J2710; J3010; J3480; J7030

== ENCOUNTER 2016-12-30 15:05 | Outpatient (CLI) | payer OTHER ==
[~2016-12-30] VITALS: Ht 170.2 cm; Wt 88.6 kg
[~2016-12-30 15:05] MED LIST changes: +HYDR-906 PO; -ROCURONIUM 50 MG INJ ONE
[2016-12-30 15:10] VITALS: BP 137/91; PULSE 81; RESP 18; Ht 170.2 cm; Wt 88.6 kg
--- NOTE | 2016-12-30 16:07 | PN ---
Date/Time of Note Date/Time of Note DATE: 12/30/16 TIME: 16:05 Assessment/Plan Assessment/Plan Assessment/Plan [facility] Progress Note Date of Service: 12/30/2016 Place of service: [facility] fourth floor Today's Assessment & Plan: Overall stable and doing well. No evidence for major postoperative complication or surgical site infection. No indication for acute surgical intervention. With above assessment, I've recommended the following for today: 1. F/u with PCP 2. F/u with us prn Thank you again for your great care of this very pleasant patient and wonderful family. If there are any questions, please feel free to call me at [phone]. Nature of presenting problem: High severity Please note that, given the limited number of diagnoses or management options, the limited amount and/or complexity of data needed to be reviewed, and moderate risk of complications and/or morbidity or mortality, this qualifies as low complexity type of decision-making. Disclaimer: Inadvertent spelling and grammatical errors are likely due to EHR/ dictation software use and do not reflect on the quality of delivered patient care. Also, please note that the electronic time recorded on this node does not necessarily reflect the actual time of the visit. Updated clinical summary: A very-pleasant otherwise healthy 46-year-old gentleman admitted through the [facility] emergency department with signs and symptoms consistent with acute appendicitis, associated with mildly elevated white blood cell count and a CT scan showing acute appendicitis. S/p an otherwise uncomplicated laparoscopic appendectomy was performed with findings of non- perforated appendicitis. Comorbidities: 1. S/p an otherwise uncomplicated laparoscopic appendectomy with lysis of adhesions was performed with findings of non-perforated appendicitis at [facility] on 12/12/2016. 2. BMI 29 Subjective: No major events or complaints since d/c home; no major abd pain and under control with medications; no n/v/d; no sob or cp; + flatus; + BM; + activity Objective: Vitals: See below I's & O's: See below Exam: GENERAL: On exam, the patient was sitting in a chair and appeared to be comfortable and in no acute distress. ABDOMEN: Soft, nontender and nondistended. Incisions are clean, dry and intact without any evidence of obvious underlying erythema, edema, discharge, or hernia. There are no peritoneal signs or guarding. SKIN: Skin appears to be pink and feels warm to touch. NEUROLOGIC: Patient is awake, alert, and follows commands appropriately. Exam/Review of Systems Vital Signs Vitals Vital Signs Date Time Temp Pulse Resp B/P Pulse Ox O2 Delivery O2 Flow Rate FiO2 12/30/16 15:10 98.4 81 18 137/91 Room Air POPPY NAIK M.D. Dec 30, 2016 16:07
== END 2016-12-30 17:00 | disposition home or self-care (01) ==
LOC: HPC 15:05
PROVIDERS: ATTEND Transplant Surgery
DX: K35.80 Unspecified acute appendicitis (principal)
CPT/HCPCS: Z7500 ×2; G0463

== ENCOUNTER 2018-05-13 18:04 | Emergency (ER) | payer OTHER ==
[~2018-05-13] VITALS: Ht 175.3 cm; Wt 76.8 kg
[~2018-05-13 18:04] MED LIST changes: +HYDR-4011 PO; -HYDR-906 PO
[2018-05-13 18:10] VITALS: Ht 175.3 cm; Wt 76.8 kg
[2018-05-13] MEDS ORDERED: ONDA4TAB14 PO (19:31)
[2018-05-13 19:45] VITALS: BP 127/84; PULSE 71; RESP 16
--- NOTE | 2018-05-14 01:20 | ERD ---
ER Documentation Chief Complaint Chief Complaint Complains of vomiting since this am HPI This patient is a 47-year-old male with no significant medical history presenting to the emergency department complaining of intermittent vomiting which began today. He reports 5 episodes of nonbloody and nonbilious emesis. Associated symptoms include body aches. The patient has had sick contacts with similar symptoms. He tried no medication for relief of symptoms. He has had no fevers or chills. He denies other symptoms at this time. ROS All systems reviewed and are negative except as per history of present illness. Medications Home Meds Active Scripts Ondansetron (Ondansetron Odt) 4 Mg Tab.rapdis, 4 MG PO Q6H PRN for NAUSEA AND/OR VOMITING, #10 TAB Prov:GREG WU PA-C 05/13/18 Hydrocodone/Acetaminophen ([place] 5-325 Tablet) 1 Each Tablet, 1 EACH PO Q8 PRN for PAIN, #21 TAB Prov:CATE FLORENCE 12/13/16 Allergies Allergies: Coded Allergies: No Known Allergy (Unverified , 12/12/16) PMhx/Soc History of Surgery: Yes (APPY- 11/2016) Anesthesia Reaction: No Hx Neurological Disorder: No Hx Respiratory Disorders: No Hx Cardiac Disorders: No Hx Psychiatric Problems: No Hx Miscellaneous Medical Probl: No Hx Alcohol Use: No Hx Substance Use: No Hx Tobacco Use: Yes (3 CIGS A WEEK) Smoking Status: Current some day smoker FmHx Family History: No diabetes Physical Exam Vitals Vital Signs Date Temp Pulse Resp B/P (MAP) Pulse Ox O2 O2 Flow FiO2 Time Delivery Rate 05/13/18 99.4 71 16 127/84 98 Room Air 19:45 (98) 05/13/18 98.7 91 20 132/92 99 18:10 (105) Physical Exam Const: No acute distress Head: Atraumatic Eyes: Normal Conjunctiva ENT: Normal External Ears, Nose and Mouth. Neck: Full range of motion. No meningismus. Resp: Clear to auscultation bilaterally Cardio: Regular rate and rhythm, no murmurs Abd: Soft, non tender, non distended. Normal bowel sounds. No rebound tenderness or guarding. No McBurney's point tenderness. Skin: No petechiae or rashes Back: No midline or flank tenderness Ext: No cyanosis, or edema Neur: Awake and alert Psych: Normal Mood and Affect Procedures/MDM 47-year-old male presenting to the emergency department complaining of body aches and intermittent vomiting. Patient is not actively vomiting in the department. He is nontoxic and well appearing. He is afebrile. Abdominal examination is not concerning for acute surgical abdomen. The patient's clinical presentation is very consistent with an acute viral syndrome. The patient does not exhibit any clinical signs or symptoms concerning for serious bacterial infection or systemic illness. Based on history and clinical exam findings the patient does not appear to have evidence of pneumonia, strep pharyngitis, urinary tract infection, bacteremia, sepsis, or meningitis. For these reasons I do not believe it is necessary to obtain laboratory testing or diagnostic imaging. I believe it would be appropriate for symptom control, and close outpatient primary care follow-up. Based on patient's history of present illness and physical examination the decision was made to discharge. There is no evidence of life threatening injuries or illnesses at this time. On re-examination, patient resting in no distress, stable vital signs, reports feeling better and safe for discharge with outpatient follow up with PMD in 1-2 days. Patient given return precautions. Patient's blood pressure was elevated (>120/80) but appears stable without evidence of hypertension emergency or urgency. The patient is to follow-up and pursue outpatient monitoring and therapy with their primary care physician within 1 week and return immediately if they have any new, worsening, or concerning symptoms. Disclaimer: Inadvertent spelling and grammatical errors are likely due to EHR/dictation software use and do not reflect on the overall quality of patient care. Also, please note that the electronic time recorded on this note does not necessarily reflect the actual time of the patient encounter. Departure Diagnosis: Primary Impression: Nausea and vomiting Vomiting type: unspecified Vomiting Intractability: unspecified Qualified Codes: R11.2 - Nausea with vomiting, unspecified Condition: Fair Patient Instructions: Nausea and Vomiting-Adult Additional Instructions: Call your primary care doctor TOMORROW for an appointment during the next 1-2 days.See the doctor sooner or return here if your condition worsens before your appointment time. GREG WU PA-C May 14, 2018 01:20
== END 2018-05-13 19:45 | disposition home or self-care (01) ==
LOC: FTE 18:04
DX: R11.2 Nausea with vomiting, unspecified (principal); F17.210 Nicotine dependence, cigarettes, uncomplicated
CPT/HCPCS: 99283

== ENCOUNTER 2018-11-13 13:44 | Emergency (ER) | payer OTHER ==
[~2018-11-13] VITALS: Ht 172.7 cm; Wt 77.0 kg
[~2018-11-13 13:44] MED LIST changes: +ONDA4TAB14 PO
[2018-11-13 13:49] VITALS: Ht 172.7 cm; Wt 77.0 kg
[2018-11-13] MEDS ORDERED: IBUP-1542 PO (15:04)
--- NOTE | 2018-11-13 15:05 | ERD ---
ER Documentation Chief Complaint Chief Complaint right ankle/foot pain s/p after jumping for truck wednesday HPI 48-year-old male presents to the ED with right foot pain located on his heel x3 days. Patient states that he jumped off a truck about 5 feet high and landed right directly on his heel. He states he has been having pain 7 out of 10 in intensity that is aching in character since the incident that is located on his heel and does not radiate anywhere. He denies any previous injury to the right foot. He states that he has not taken any medication to help relieve his symptoms. ROS All systems reviewed and are negative except as per history of present illness. Medications Home Meds Active Scripts Ibuprofen* (Motrin*) 600 Mg Tab, 600 MG PO Q6H PRN for PAIN AND OR ELEVATED TEMP, #30 TAB Prov:REED FIGUEROA PA-C 11/13/18 Ondansetron (Ondansetron Odt) 4 Mg Tab.rapdis, 4 MG PO Q6H PRN for NAUSEA AND/OR VOMITING, #10 TAB Prov:GREG WU PA-C 05/13/18 Hydrocodone/Acetaminophen (Zebulon 5-325 Tablet) 1 Each Tablet, 1 EACH PO Q8 PRN for PAIN, #21 TAB Prov:CATE FLORENCE 12/13/16 Allergies Allergies: Coded Allergies: No Known Allergy (Unverified , 12/12/16) PMhx/Soc History of Surgery: Yes (APPY- 11/2016) Anesthesia Reaction: No Hx Neurological Disorder: No Hx Respiratory Disorders: No Hx Cardiac Disorders: No Hx Psychiatric Problems: No Hx Miscellaneous Medical Probl: No Hx Alcohol Use: No Hx Substance Use: No Hx Tobacco Use: Yes (3 CIGS A WEEK) FmHx Family History: No diabetes Physical Exam Vitals Vital Signs Date Temp Pulse Resp B/P (MAP) Pulse Ox O2 O2 Flow FiO2 Time Delivery Rate 11/13/18 98.1 71 18 128/71 99 Room Air 15:14 (90) 11/13/18 98.4 68 18 138/78 99 13:49 (98) Physical Exam Const: No acute distress Head: Atraumatic Eyes: Normal Conjunctiva ENT: Normal External Ears, Nose and Mouth. Neck: Full range of motion Resp: Clear to auscultation bilaterally Cardio: Regular rate and rhythm, Abd: Soft, non tender, non distended. Skin: No petechiae or rashes Back: No midline or flank tenderness Ext: Moderate tenderness to the right foot calcaneus. No bruising. Slight swelling Neur: Awake and alert Psych: Normal Mood and Affect Procedures/MDM ED COURSE: The patient was stable throughout ED course. I kept the patient informed of laboratory and diagnostic imaging results throughout the ED course. DIAGNOSTIC IMAGING: Read by radiologist. PROCEDURE: XR Foot. CLINICAL INDICATION: Right foot pain TECHNIQUE: 3 views of the right foot are available for review. COMPARISON: None available FINDINGS: There is no acute fracture. Alignment is normal. Joint spaces are preserved. There is a moderate sized plantar calcaneal enthesophyte. IMPRESSION: 1. No radiographic evidence of acute osseous abnormality. 2. Moderate sized plantar calcaneal enthesophyte. RPTAT: UU .Gurwinder Lacey MD, MD Date Time Electronically viewed and signed by .Gurwinder Lacey MD, MD on 11/13/2018 14:47 MEDICATIONS GIVEN: [None.] MEDICAL DECISION MAKING: Patient is a 48-year-old male complaining of right heel pain since jumping off a truck 5 feet high. On exam patient is tender to the heel of his right foot. Patient is able to walk on the foot but states increased pain when doing so. X- ray imaging showed no acute fractures. At this time I do not think patient has a fracture, osteomyelitis, open fractures, cellulitis. Patient was reassured and discharged with ibuprofen and told to follow-up with primary care. Vital signs were reviewed. Patient is afebrile. Patient was not hypoxic. Patient was hemodynamically stable. PRESCRIPTION: Motrin DISCHARGE: At this time, patient is stable for discharge and outpatient management. I have instructed the patient to follow-up with his/her primary care physician in 1-2 days. I have discussed with the patient the possibility of needing to see a specialist for further workup and imaging studies if symptoms persist. I have instructed the patient to promptly return to the ER for any new or worsening symptoms including increased pain, fever, nausea, vomiting, weakness or LOC. The patient and/or family expressed understanding of and agreement with this plan. All questions were answered. Home care instructions were provided. Disclaimer: Inadvertent spelling and grammatical errors are likely due to EHR/dictation software use and do not reflect on the overall quality of patient care. Also, please note that the electronic time recorded on this note does not necessarily reflect the actual time of the patient encounter. Departure Diagnosis: Primary Impression: Foot pain Laterality: right Qualified Codes: M79.671 - Pain in right foot Condition: Fair Patient Instructions: Sprain Foot Referrals: [facility] YOU HAVE RECEIVED A MEDICAL SCREENING EXAM AND THE RESULTS INDICATE THAT YOU DO NOT HAVE A CONDITION THAT REQUIRES URGENT TREATMENT IN THE EMERGENCY DEPARTMENT. FURTHER EVALUATION AND TREATMENT OF YOUR CONDITION CAN WAIT UNTIL YOU ARE SEEN IN YOUR DOCTORS OFFICE WITHIN THE NEXT 1-2 DAYS. IT IS YOUR RESPONSIBILITY TO MAKE AN APPOINTMENT FOR FOLOW-UP CARE. IF YOU HAVE A PRIMARY DOCTOR --you should call your primary doctor and schedule an appointment IF YOU DO NOT HAVE A PRIMARY DOCTOR YOU CAN CALL OUR PHYSICIAN REFERRAL HOTLINE AT IF YOU CAN NOT AFFORD TO SEE A PHYSICIAN YOU CAN CHOSE FROM THE FOLLOWING [facility] [address] [facility]. [facility] [address] [facility]. [facility] [address] [facility] [facility] [address] [facility] [facility] [address] [facility]. [facility]. [address] [facility]. [facility] YOU HAVE RECEIVED A MEDICAL SCREENING EXAM AND THE RESULTS INDICATE THAT YOU DO NOT HAVE A CONDITION THAT REQUIRES URGENT TREATMENT IN THE EMERGENCY DEPARTMENT. FURTHER EVALUATION AND TREATMENT OF YOUR CONDITION CAN WAIT UNTIL YOU ARE SEEN IN YOUR DOCTORS OFFICE WITHIN THE NEXT 1-2 DAYS. IT IS YOUR RESPONSIBILITY TO MAKE AN APPOINTMENT FOR FOLOW-UP CARE. IF YOU HAVE A PRIMARY DOCTOR --you should call your primary doctor and schedule and appointment IF YOU DO NOT HAVE A PRIMARY DOCTOR YOU CAN CALL OUR PHYSICIAN REFERRAL HOTLINE AT . IF YOU CAN NOT AFFORD TO SEE A PHYSICIAN YOU CAN CHOSE FROM THE FOLLOWING [facility]: [facility] [address] [place] [address] [facility] [address] [place] [address] LOCATED WITHIN [facility] + [facility] [address] [place] [address] Additional Instructions: Call your primary care doctor TOMORROW for an appointment during the next 2-3 d ays.See the doctor sooner or return here if your condition worsens before your appointment time. REED FIGUEROA PA-C Nov 13, 2018 15:05
[2018-11-13 15:14] VITALS: BP 128/71; PULSE 71; RESP 18
== END 2018-11-13 15:16 | disposition home or self-care (01) ==
LOC: FTE 13:44
DX: M79.671 Pain in right foot (principal); Z87.891 Personal history of nicotine dependence
CPT/HCPCS: 73630; Z7502